=== PATIENT | female | born 1980 | race Two or more races ===

== ENCOUNTER 2021-08-31 09:02 | Outpatient (CLI) | payer OTHER | END 2021-08-31 09:06 | disposition home or self-care (01) | LOC: SONOGRAMA 09:02 | PROVIDERS: ATTEND Pathology Anatomic Pathology & Clinical Pathology | DX: Q83.1 Accessory breast (principal) ==

== ENCOUNTER 2024-10-15 22:23 | Emergency (ER) | payer OTHER ==
[~2024-10-15] VITALS: Ht 157.5 cm; Wt 59.4 kg
== END 2024-10-16 02:20 | disposition home or self-care (01) ==
LOC: ER 22:23
DX: R00.2 Palpitations (principal)